=== PATIENT | female | born 1950 | race Caucasian/White ===

== ENCOUNTER 2017-12-13 10:40 | Emergency (ER) | payer OTHER ==
[~2017-12-13] VITALS: Ht 162.6 cm; Wt 120.7 kg
[~2017-12-13 10:40] MED LIST: ALLEGRA ALLERG180 MG PO; AVALIDE 300-12.1 TAB PO; ECOTRIN81 MG PO; GLUMETZA1000 MG PO; HUMULIN 70100 UNIT/1 SQ; SYNTHROID75 MCG PO; ZOCOR40 MG PO
== END 2017-12-13 14:57 | disposition home or self-care (01) ==
LOC: ER 10:40
DX: S13.4XXA Sprain of ligaments of cervical spine, initial encounter (principal); V49.9XXA Car occupant (driver) (passenger) injured in unspecified traffic accident, initial encounter; Y93.89 Activity, other specified; Y92.488 Other paved roadways as the place of occurrence of the external cause; Y99.8 Other external cause status

== ENCOUNTER → 2018-06-01 | Emergency (ER) | payer OTHER ==
[~2018-06-01] VITALS: Ht 165.1 cm; Wt 120.2 kg
== END | disposition home or self-care (01) ==
LOC: ER 14:11
DX: B34.9 Viral infection, unspecified (principal); E11.65 Type 2 diabetes mellitus with hyperglycemia; J11.1 Influenza due to unidentified influenza virus with other respiratory manifestations

== ENCOUNTER 2019-06-12 14:48 | Emergency (ER) | payer OTHER ==
[~2019-06-12] VITALS: Ht 165.1 cm; Wt 122.0 kg
== END 2019-06-12 19:47 | disposition home or self-care (01) ==
LOC: ER 14:48
DX: J45.998 Other asthma (principal); J11.1 Influenza due to unidentified influenza virus with other respiratory manifestations